=== PATIENT | female | born 1945 | race Caucasian/White ===

== ENCOUNTER 2017-05-26 11:56 | Outpatient (CLI) | payer MEDICARE ==
[~2017-05-26 11:56] MED LIST: Gadobenate Dimeglumine 529 MG/1 ML (20ML VIAL) ONE
--- NOTE | 2017-05-26 17:43 | MRI ---
MRI BRAIN WITH AND WITHOUT CONTRAST: 05/26/17 HISTORY: 71-year-old female with: R29.818 - balance problem. R26.9 - abnormal gait. R26.89 - impaired gait and mobility. R51 - frequent headaches. H53.9 - vision changes. R47.9 - difficulty with speech. R13.10 - dysphagia. R32 - urinary incontinence. TECHNIQUE: Multiple sequences obtained in axial, sagittal, and coronal planes; pre and post IV injection of gado linium-based contrast agent: 13 mL of Multihance. FINDINGS: The ventricles are normal in size and configuration. There is no restricted diffusion, abnormal intr aaxial enhancement, mass, midline shift or any other mass effect, recent intraaxial hemorrhage, or ex traaxial fluid collection. There are a few scattered punctate T2-hyperintensities in the cerebral whi te matter consistent with mild chronic ischemic white matter changes due to mild microvascular athero sclerosis. A large number of enlarged cervical lymph nodes at multiple levels are noted on the sagitt al and coronal images (the axial images do not include the neck). IMPRESSION: 1. Mild chronic ischemic white matter changes. 2. No other abnormality of the brain identified. 3. Significant bilateral cervical lymphadenopathy, raising the possibility of lymphoma. Consider CT o f the neck (preferably with IV contrast unless contraindicated) for further evaluation. adriano[] POS: [facility]
--- NOTE | 2017-05-26 18:29 | MRI ---
MRI CERVICAL SPINE WITH AND WITHOUT CONTRAST: 05/26/17 HISTORY: 71-year-old female with R29.818, balance problem. R26.9, abnormal gait. R26.89, impaired gait and mob ility. R32, urinary incontinence. TECHNIQUE: Multisequence MRI of C-spine obtained in sagittal and axial plains, pre and post IV injection of 13 m L of Multihance gadolinium based contrast agent. COMPARISON: None. FINDINGS: There is no Chiari I malformation. Cervical spinal cord is normal in size and signal. There is no syr inx. There is no abnormal enhancement or mass involving the intramedullary, extramedullary-intradural , extradural, or intraosseous, spaces. There is a very large number of enlarged cervical lymph nodes throughout all levels of the neck. The vertebral body heights are maintained. The bone marrow signal is within normal limits. The findings by individual levels are as follows: C1-2: No central stenosis. Essentially normal atlantoaxial and atlanto-occipital joints. C2-3: Disc space maintained. No central stenosis or neural foraminal stenosis. Moderate left degenera tive facet changes and mild right degenerative facet changes. C3-4: Disc space maintained. No central stenosis or neural foraminal stenosis. No high grade degenera tive facet changes. Small central disc protrusion. C4-5: Moderate to severe disc space narrowing. Slight degenerative retrolisthesis of C4 on C5. Mild b road based disc-osteophytic bar complex almost abuts the ventral surface of the spinal cord. Moderate central spinal canal stenosis. Mild bilateral uncinate process osteophytes. Mild bilateral degenerat usman facet hypertrophy. Moderate to severe right neural foraminal stenosis. Minimal left neural forami nal stenosis. C5-6: Mild broad based disc bulge/osteophytic bar complex causes mild central spinal canal stenosis. Small bilateral uncinate process osteophytes. No right sided neural foraminal stenosis. Mild to moder ate left neural foraminal stenosis. Mild to moderate right degenerative facet hypertrophy. Essentiall y normal left facet complex. Moderate disc space narrowing. C6-7: Moderate disc space narrowing. Mild broad based disc-osteophytic bar complex. Mild to moderate central spinal canal stenosis. Moderate sized uncinate process osteophytes. Moderate right neural for aminal stenosis. Mild to moderate left neural foraminal stenosis. No high grade degenerative facet ch anges. C7-T1: Moderate right degenerative facet changes. Mild to moderate left degenerative facet changes. N o central or neural foraminal stenosis. Disc space maintained. IMPRESSION: 1. Extensive, diffuse, cervical lymphadenopathy. One possibility is lymphoma. 2. Mild to moderate cervical spondylosis with varying degrees of degenerative disc disease and f acet osteoarthrosis. 3. Moderate central spinal canal stenosis at C4-5. 4. Moderate-severe right neural foraminal stenosis at C4-5. 5. No abnormality of the cervical spinal cord. POS: [facility]
--- NOTE | 2017-05-26 19:11 | MRI ---
MRI OF THE LUMBAR SPINE WITH AND WITHOUT CONTRAST 05/26/17 HISTORY: Balance problems. Abnormal gait. COMPARISON: None. TECHNIQUE: A lumbar spine MRI is performed with and without intravenous gadolinium administration. Multisequenti al, multiplanar imaging is performed. ' FINDINGS: Appropriate T1 marrow signal intensity of the lumbar vertebra. Lumbar spine vertebral height is maint ained. There is no fracture. No significant STIR hyperintensity to suggest vertebral body or facet ed pranav. No MR evidence of ligamentous injury. Symmetric signal intensity of the psoas muscles. Appropriate signal intensity of visualized solid org ans. Conus medullaris terminates at the superior end plate of L1. Postcontrast images do not demonstrate abnormal enhancement with regard to the vertebral bodies. Ther e is no abnormal enhancement within the thecal sac including the cauda equina or conus medullaris. The visualized presacral fat is unremarkable. T12-L1: Adequate disc hydration. No significant central canal stenosis. Foramina are patent. L1-L2: Adequate disc hydration. No significant central canal stenosis. Neural foramina are patent. L2-L3: Minimal disc desiccation. Minimal loss of disc space height. Minimal ligamentous flavum thicke denise and facet hypertrophy. Neural foramina are patent bilaterally. L3-L4: Minimal disc desiccation. Minimal loss of disc space height. No significant central canal sten osis. No significant foraminal narrowing. L4-L5: Mild loss of disc space height. Minimal disc bulge. No significant central canal stenosis. Mil d bilateral foraminal narrowing due to disc material and posterior element hypertrophy. L5-S1: Minimal loss of disc space height. There is a central T2 and STIR hyperintense focus with asso ciated enhancement likely representing a small annular fissure, right subarticular zone in location. The inner fissure abuts but does not obscure or cause any significant mass effect on the traversing r ight S1 nerve root. The left subarticular zone is patent. No significant stenosis of the thecal sac. Right neural foramen is patent. Mild left foraminal narrowing. IMPRESSION: 1. Annular fissure at L5-S1. 2. No high grade central canal stenosis or high grade foraminal narrowing. Varying degrees of ne ural foraminal stenosis as above. 3. No abnormal enhancement. POS: [facility]
--- NOTE | 2017-05-26 20:25 | MRI ---
MRI THORACIC SPINE WITH AND WITHOUT CONTRAST: 05/26/17 HISTORY: 71-year-old female with R29.818, balance problem. R26.9, abnormal gait. R26.9, abnormal gait. R26.89, impaired gait and mobility. R32, urinary incontinence. COMPARISON: None. TECHNIQUE: Multisequence MRI of T-spine obtained in sagittal and axial planes, pre and post IV injection of 13 m L of Multihance gadolinium based contrast agent. FINDINGS: There is probably extensive mediastinal lymphadenopathy, although the mediastinum is more difficult t o evaluate on a thoracic spine MRI than cervical lymph nodes on a C-spine MRI. The multiple enlarged bilateral supraclavicular lymph nodes are definitely visualized on this study. The thoracic vertebral body heights are maintained. There is a mild lateral curvature of the thoracic spine, and slightly e xaggerated kyphosis. There is no significant bone marrow signal abnormality. There are a few small T 2 hyperintense lesions in the right lobe of the liver. They may represent cysts, but these are diffic ult to visualize on the postcontrast sequences, and therefore, a more aggressive etiology is difficul t to rule out. There is no syringohydromyelia. No definite intramedullary signal abnormality. No abno rmal intramedullary enhancement is identified. No abnormal enhancement identified in the extramedulla ry-intradural, extradural, or interosseous spaces. At the central and left paracentral aspect of the anterior epidural space at T6 level, there is a nonenhancing T1 and T2 hypointense small mass that in dents the ventral surface of the spinal cord without causing high grade central spinal canal stenosis . This is probably a superiorly migrated extruded disc herniation from the T6-7 level rather than an inferiorly migrated disc extrusion from T5-6 level. Likewise, there is a central and right paracentral small disc extrusion from T7-8 level with superior migration, that mildly indents the ventral surface of the spinal cord at the mid T7 level. Again, th ere is no central spinal canal stenosis at this level. There is a small central disc herniation at T8-9 that almost contacts the ventral surface of the spin al cord. No central spinal canal stenosis at this level. Tiny central disc protrusion at T9-10. There is no high grade central spinal canal stenosis at any le kathy. There is no high grade neural foraminal stenosis at any level. No lana cord compression. IMPRESSION: 1. Mild to moderate thoracic spondylosis, with multiple small focal disc herniations, including extrusions, some with migration, and some slightly indenting the ventral surface of the spinal cord. 2. No significant central spinal stenosis at any level. 3. No other abnormality of the spinal cord. 4. Suspected mediastinal lymphadenopathy, raising the possibility of lymphoma. 5. Questionable lesions in the liver. 6. Recommend CTs of the neck, chest, abdomen and pelvis, all with contrast, to evaluate for vinita tional lymphadenopathy. Code T POS: [facility]
== END 2017-05-26 11:57 | disposition home or self-care (01) ==
LOC: SCSMRI 11:56
PROVIDERS: ATTEND Student in an Organized Health Care Education/Training Program
DX: R26.89 Other abnormalities of gait and mobility (principal); R29.818 Other symptoms and signs involving the nervous system; R32 Unspecified urinary incontinence; R51 Headache; H53.9 Unspecified visual disturbance; R47.9 Unspecified speech disturbances; R13.10 Dysphagia, unspecified; M47.894 Other spondylosis, thoracic region; M51.24 Other intervertebral disc displacement, thoracic region; Q05.7 Lumbar spina bifida without hydrocephalus; R59.0 Localized enlarged lymph nodes; M47.892 Other spondylosis, cervical region; M50.30 Other cervical disc degeneration, unspecified cervical region; M48.02 Spinal stenosis, cervical region
CPT/HCPCS: 70553; 72156; 72157; 72158; A9579

== ENCOUNTER 2018-12-23 10:33 | Outpatient (CLI) | payer MEDICARE ==
--- NOTE | 2018-12-23 12:31 | ULT ---
EXAM: Abdominal ultrasound complete: HISTORY: Abdominal pain COMPARISON: None FINDINGS: Minimally heterogeneous liver echogenicity. 1.1 x 1.2 x 1.9 cm left lobe of liver cyst. Multiple nodular filling defects within the gallbladder some of which do not appear to be moved. Some of these shadowing concerning for multiple small stones and/or polyps. The common bile duct is Within normal limits. Visualized pancreas: Unremarkable. Visualized abdominal aorta: Unremarkable. Visualized IVC: Unremarkable. Visualized spleen: 1.5 cm diameter minimally hypoechoic, solid-appearing nodular focus within the spl een, nonspecific. Visualized kidneys: No evidence for hydronephrosis or solid or cystic mass. No mass, abscess, adenopathy, or abnormal fluid collection or other acute process. Trace fluid in Morison pouch region. IMPRESSION: Multiple filling defects within the gallbladder evidence for multiple stones and/or polyps. 1.5 cm hypoechoic nonspecific nodular focus within the spleen. Trace fluid in the Morison pouch region
== END 2018-12-23 10:34 | disposition home or self-care (01) ==
LOC: BICULT 10:33
PROVIDERS: ATTEND Specialist
DX: R10.33 Periumbilical pain (principal); R93.2 Abnormal findings on diagnostic imaging of liver and biliary tract; R93.89 Abnormal findings on diagnostic imaging of other specified body structures
CPT/HCPCS: 76700

== ENCOUNTER 2019-04-06 09:18 | Outpatient (CLI) | payer MEDICARE ==
--- NOTE | 2019-04-06 11:11 | CT ---
CT of abdomen and pelvis: 04/06/2019 COMPARISON: None HISTORY: 73-year-old female with suprapubic pain TECHNIQUE: Axial CT imaging from lung bases through pubic symphysis with intravenous and oral contras t. Coronal and sagittal reformatted imaging obtained. FINDINGS: The visualized lung bases appear grossly unremarkable. No free intraperitoneal air or fluid. Cholecystectomy clips are present. There are numerous subcentimeter hypodense lesions with scattered throughout the right and left lobes of the liver. Many of these lesions are too small to characterize. These are favored to represent numerous cysts. However, some of the lesions are slightly more dense than expected for simple cysts a nd thus, follow-up is suggested. In addition, there is a vague hypodensity within the inferior aspect of the left lobe of the liver on axial image 21 measuring 1.8 cm which does not demonstrate Ho unsfield units consistent with a cyst, Hounsfield units of this lesion estimated in the 80-90 range. There is a vague nonspecific hypodense lesion within the inferior aspect of the spleen measuring 1.3 cm. Pancreas, adrenal glands, and kidneys appear unremarkable. Small fat-containing inguinal hernia on the left. No evidence for bowel inflammatory change or obstru ction. Appendix is unremarkable. Retroperitoneal lymphadenopathy is present, which includes a left-sided 2.3 cm node to the left of th e left common iliac artery. There are enlarged lymph nodes noted bilaterally along the course of the bilateral common iliac arteries distally. Multiple enlarged nodes are also present in the region of the pelvic sidewall and along the course of the external iliac vasculature bilaterally. This includes lymphadenopathy abutting the lateral aspect of the urinary bladder on the right measuring 6. 3 x 2.0 cm and on the left measuring 5.4 x 2.0 cm. Review of the osseous structures demonstrates multilevel lower lumbar spine facet hypertrophy. No worrisome lytic or blastic bone lesion. IMPRESSION: Retroperitoneal/pelvic lymphadenopathy suspicious for malignancy. This could be related t o metastatic disease or lymphoma. Nonspecific hepatic lesions, particularly a lesion within the inferior aspect of the left lobe as det nataliia above. These hepatic lesions should be further evaluated with multiphase CT examination using a hepatic mass protocol. CODE T
[2019-04-06] MEDS ORDERED: Iopamidol-370 76% 500 ML 1 ML ONE (13:51)
== END 2019-04-06 09:19 | disposition home or self-care (01) ==
LOC: BICCT 09:18
PROVIDERS: ATTEND Internal Medicine
DX: R10.30 Lower abdominal pain, unspecified (principal); K76.9 Liver disease, unspecified
CPT/HCPCS: 74177; 82565; Q9967

== ENCOUNTER 2019-07-25 08:21 | Outpatient (CLI) | payer MEDICARE ==
--- NOTE | 2019-07-25 09:28 | ULT ---
ULTRASOUND RETROPERITONEUM COMPLETE: (RENAL) DATE: 07/25/2019. HISTORY: A 73-year-old female with chronic cystitis. FINDINGS: The right kidney measures 8.5 x 4 x 4.5 cm. The left kidney measures 8.5 x 4.5 x 4 cm. Both kidneys have normal cortical thickness and normal cortical echogenicity. There is no hydronephrosis. Curso ry images of the urinary bladder demonstrate no gross abnormality. There is an approximately 1.5 cm focal heterogeneously mildly hypoechoic lesion in the spleen. This corresponds to a lesion in the in ferior aspect of the spleen seen on the CT of 04/06/2019, and is nonspecific. The somewhat small armando surements of the renal sizes could be due to the fact that the inferior poles are partially obscured by shadowing from overlying bowel gas. IMPRESSION: 1. No hydronephrosis. 2. No sonographic abnormality of the urinary bladder identified. adriano [] POS: [facility]
== END 2019-07-25 08:22 | disposition home or self-care (01) ==
LOC: ULT 08:21
PROVIDERS: ATTEND Specialist
DX: N30.20 Other chronic cystitis without hematuria (principal)
CPT/HCPCS: 76770

== ENCOUNTER 2019-10-27 08:28 | Outpatient (CLI) | payer MEDICARE ==
--- NOTE | 2019-10-27 11:23 | ULT ---
ULTRASOUND URINARY BLADDER: Date: 10/27/2019 INDICATION: Urinary fullness. Request is made to assess post-void volume. FINDINGS: The urinary bladder is only mildly distended and appears unremarkable. Urinary pre-void volume is rec orded at 73 mL. The patient states she had recently voided and was unable to void at the time of this exam. IMPRESSION: Mildly distended bladder with volume measured at 73 mL. Patient states recent voiding and this may re present an approximate post-void volume. POS: [facility]
--- NOTE | 2019-10-27 13:07 | CT ---
CT abdomen with and without contrast CT pelvis with and without contrast: 10/27/2019 HISTORY: "R 30.0, R 10.30, seen 91.10" Suprapubic pain Follow-up multiple hepatic lesions. COMPARISON: CT of 04/06/2019 TECHNIQUE: PO contrast: 900 mL Gastrografin and water mixture. IV contrast: 90 mL Isovue-370. Precontrast scan, arterial phase scan, and portal venous phase scan, of abdomen. Precontrast scan and venous phase scan of pelvis. FINDINGS: Multiple small round low-attenuation lesions in the right lobe of the liver, and some in the left lob e of the liver, ranging in size from a few millimeters up to approximately 1.5 cm. As previously stated, some of them have densities that are higher than expected for simple cyst, but there does not appear to be a significant definite change in the degree of attenuation between the 3 different phases of scanning (i.e. no definitive evidence of enhancement). They have not definitely grown since the previous CT. There was one particular lesion mentioned on the prior report measuring 1.8 cm, which was of intermed iate to low attenuation, similar to that of adjacent normal hepatic parenchyma, located in hepatic segment 3 of the left lobe, that appeared very different from the other lesions. That particular lesi on is very difficult to identify on the current CT. The small low-attenuation lesion at the inferior aspect of the spleen is visible on the during the ar terial phase scan, but its attenuation is similar to that of the rest of the splenic parenchyma on the precontrast and venous phase scans, such that it is not visible on the scans. Spleen measures sindy roximately 11.5 x 5 x 9.5 cm. From the L3-4 through upper L5 levels, the retroperitoneal soft tissue density mass measuring approxi mately 2.3 x 2.5 x 5 cm, located between the left psoas muscle and the left common iliac artery, is unchanged since 04/06/2019, and in retrospect, unchanged since lumbar spine MRI of 05/26/2017. There ar e smaller, but otherwise similar such soft tissue density masses following the bilateral iliac chains. This includes an approximately 7 x 1.7 cm soft tissue density mass between the right side of the urinary bladder and the right acetabulum, and a similar such location lesion on the left measuring 2 x 5 cm. These are either minimally larger now or the same since the prior CT. No renal, or bladder calculi. Normal bilateral kidneys, urinary bladder, pancreas, and adrenals. Chol ecystectomy clips. No abdominal aortic aneurysm. No colonic diverticulitis. No ascites, small bowel dilation, or pneumoperitoneum. Nonspecific mild left subpleural lower lobe pulmonary groundglass sabillon ges, new. No destructive osseous lesion identified. IMPRESSION: 1.) Multiple small focal hepatic lesions. Unchanged since 04/06/2019. Most of them are probably cysts , at least some with proteinaceous or hemorrhagic internal contents. 2) the more suspicious, possibly solid 1.8 cm mass in the left lobe of liver demonstrated previously, is currently very difficult to visualize. Etiology is uncertain. 3) left lower retroperitoneal mass is unchanged since 05/26/2017. Multiple other soft tissue masses penelope ng the bilateral iliac chains, probably stable since 04/06/2019. Differential diagnosis includes lymphoma, metastatic lymph nodes, versus multiple nerve sheath tumors. 4) nonspecific small lesion at inferior aspect of spleen, stable. 5) consider continued serial follow-up CTs of abdomen and pelvis with contrast.
== END 2019-10-27 08:29 | disposition home or self-care (01) ==
LOC: ULT 08:28 → SCSULT 08:29
PROVIDERS: ATTEND Internal Medicine Infectious Disease
DX: C91.10 Chronic lymphocytic leukemia of B-cell type not having achieved remission (principal); R30.0 Dysuria; R10.30 Lower abdominal pain, unspecified; K76.9 Liver disease, unspecified; D73.89 Other diseases of spleen; M79.89 Other specified soft tissue disorders
CPT/HCPCS: 74178; 76856; 82565